=== PATIENT | male | born 1985 | race Two or more races ===

== ENCOUNTER 2020-04-17 13:26 | Emergency (ER) | payer SELFPAY ==
[2020-04-17 13:41] VITALS: BP 160/113; PULSE 88
--- NOTE | 2020-04-17 14:42 | EDM.PDOCBH ---
ED HPI GENERAL MEDICAL PROBLEM - General Chief Complaint: Drug or Alcohol Abuse Stated Complaint: DIZZINESS Time Seen by Provider: 04/17/20 14:39 Source of Information: Reports: Patient History Limitations: Reports: No Limitations - History of Present Illness INITIAL COMMENTS - FREE TEXT/NARRATIVE: 35-year-old male presents to the ED feeling extremely anxious with associated nausea. He states he developed feeling of being off kilter when walking and moving his head which I interpreted as mild vertigo. He also did get to the point that he had given vision and actually went down to his knees as he thought he was going to pass out. When he arrived in the ED apparently felt very unwell with palpitations shortness of breath and anxiety. He states he has chronic anxiety disorder for many years which was successfully treated with Xanax and initially sertraline for many years and then his symptoms recurred reoccurred after he discontinued the sertraline and Xanax and he had to go back on Xanax and he believes Lexapro. And off both of these medications for about a year. He lost his job March 03 due to layoffs from the [employer] virus and has not been able to find work which is creating a lot of financial distress and anxiety. He states when he was working he was distracted most of the time and therefore did not have much in the way of anxiety. He has a marked disrupted sleep pattern at present can fall asleep but often wakes up and cannot get back to sleep. He wakes up every morning very nauseated likely due to postnasal drip and chronic alcohol use. He is using a lot of alcohol's to gain control of anxiety since he was laid off. A pint of whiskey yesterday. Nuys any vomiting or hemoptysis. 2 weeks ago he had a significant bout of abdominal pain and quit drinking for 2 days and it went away. Possible pancreatitis versus alcohol induced gastritis. Denies using street drugs. Does not he feels better since coming into the hospital feels like he has control of his anxiety at present and did not want any Xanax at this time. Onset: Other (Problems have been chronic but much worse since laid off from work 2 months ago.) Duration: Chronic, Getting Worse Location: Reports: Generalized (Where postnasal drip spit have beenChronic but much worse the last 2 months since he has been laid off from work. Generalized anxiety with panic attack.), Other (Chronic alcohol use use the last 2 months) Quality: Reports: Other (Today felt somewhat vertiginous and lightheaded like he could pass out.) Severity: Moderate (To severe reaction today.) Improves with: Reports: Other (Symptoms wax and wane. 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 Denies: Activity ( vertigo.), Exercise, Lifting, Sick Contact, Trauma Associated Symptoms: Reports: Diaphoresis, Loss of Appetite, Malaise, Nausea/ Vomiting ( very anxious. Very nauseated every morning cannot eat for the first 3 to 4 hours of the day.), Shortness of Breath (When he came to the hospital he feeling short of breath and). 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 (see below) (None.) - Related Data Allergies Allergy/AdvReac Type Severity Reaction Status Date / Time silver Allergy Severe Rash Verified 04/17/20 13:41 Home Meds: Home Meds ALPRAZolam [Xanax] 0.5 mg PO Q8H PRN #60 tablet 04/17/20 [Rx] Sertraline [Zoloft] 50 mg PO DAILY #30 tab 04/17/20 [Rx] Past Medical History - Past Health History Medical/Surgical History: Denies Medical/Surgical History Musculoskeletal History: Reports: Fracture Psychiatric History: Reports: Anxiety, Depression - Past Surgical History Musculoskeletal Surgical History: Reports: Shoulder Surgery, Other (See Below) Other Musculoskeletal Surgeries/Procedures:: Plate and screws in right arm Social & Family History - Family History Family Medical History: Noncontributory - Tobacco Use Smoking Status *Q: Former Smoker Used Tobacco, but Quit: Yes Month/Year Tobacco Last Used: 02/2008 - Caffeine Use Caffeine Use: Reports: Coffee, Energy Drinks - Alcohol Use Days Per Week of Alcohol Use: 7 Number of Drinks Per Day: 12 Total Drinks Per Week: 84 Date of Last Drink: 04/17/20 Time of Last Drink: 06:30 - Recreational Drug Use Recreational Drug Use: Yes Drug Use in Last 12 Months: Yes Recreational Drug Type: Reports: Marijuana/Hashish Recreational Drug Use Frequency: Weekly - Living Situation & Occupation Living situation: Reports: Occupation: Employed ED ROS GENERAL - Review of Systems Review Of Systems: See Below Constitutional: Reports: Malaise, Weakness, Fatigue, Decreased Appetite. Denies : Fever, Chills HEENT: Reports: Rhinitis (Aware of chronic postnasal drip.), Sinus Problem, Vertigo Respiratory: Reports: Shortness of Breath (Associated more with anxiety episodes.), Cough (Productive if any.) Cardiovascular: Reports: Chest Pain, Blood Pressure Problem (Pressure was elevated when he came to the ED but he is not known to have a primary hypertension issue.), Lightheadedness, Palpitations. Denies: Dyspnea on Exertion, Edema (He had it today and felt like he was going to pass out for a period of time) Endocrine: Reports: Fatigue GI/Abdominal: Reports: Decreased Appetite, Nausea (Till 11 or 12:00 in the day.) : Reports: Frequency Musculoskeletal: Reports: No Symptoms Skin: Reports: No Symptoms Neurological: Reports: Dizziness (Component of dizziness which is mostly vertigo -like symptoms. Shaded with anxiety and therefore difficult to sort out), Syncope, Weakness. Denies: Difficulty Walking Psychiatric: Reports: Anxiety. Denies: Depression, Hallucinations, Homicidal Ideation, Mood Lability, Suicidal Ideation Hematologic/Lymphatic: Reports: No Symptoms Immunologic: Reports: No Symptoms ED EXAM, BEHAVIORAL HEALTH - Physical Exam Exam: See Below Exam Limited By: No Limitations General Appearance: Alert, WD/WN, Anxious, Mild Distress, Other (Temperature is 36.2. Heart rate is 88. Respiratory was 22 with O2 sats of 100% on room air. Initial BP was elevated 1 6113. It Did come down to as low as 138/88.) Eye Exam: Right Eye: Nystagmus (Very minimal sustained nystagmus on right lateral gaze.), Bilateral Eye: Normal Inspection Ears: Normal TMs Nose: Nasal Swelling (Patient has significant swelling of the nasal turbinates bilaterally worse on the left side with near complete occlusion of the nares.), Nasal Drainage, Clear Rhinorrhea Throat/Mouth: Normal Inspection, Normal Lips, Normal Teeth, Normal Oropharynx, Other Head: Atraumatic, Normocephalic Neck: Normal Inspection, Supple, Non-Tender, Full Range of Motion. No: Lymphadenopathy (L), Lymphadenopathy (R) Respiratory/Chest: No Respiratory Distress, Lungs Clear, Normal Breath Sounds, No Accessory Muscle Use, Chest Non-Tender Cardiovascular: Normal Peripheral Pulses, Regular Rate, Rhythm, No Edema, No Gallop, No Murmur, No Rub GI/Abdominal: Normal Bowel Sounds, Soft, Non-Tender, No Organomegaly, No Distention, No Abnormal Bruit, No Mass, Pelvis Stable. No: Guarding, Rigid Back Exam: Normal Inspection, Full Range of Motion. No: CVA Tenderness (L), CVA Tenderness (R) Extremities: Normal Inspection, Normal Range of Motion, Non-Tender, No Pedal Edema, Normal Capillary Refill Neurological: Alert, Normal Mood/Affect, CN II-XII Intact, Normal Cognition, No Motor/Sensory Deficits, Oriented x 3 Psychiatric: Alert, Normal Affect, Normal Cognition, Normal Mood, Oriented, Restless, Other (Anxious) Skin Exam: Warm, Dry, Intact, Normal color, No rash COURSE, BEHAVIORAL HEALTH COMP - Course Vital Signs: Last Vital Signs Temp 36.2 C 04/17/20 13:36 Pulse 88 04/17/20 13:36 Resp 22 H 04/17/20 13:36 BP 160/113 H 04/17/20 13:36 Pulse Ox 100 04/17/20 13:36 Orders, Labs, Meds: Active Orders 24 hr Category Date Time Status Orthostatic Vital Signs [RC] ASDIRECTED Care 04/17/20 14:39 Active Laboratory Tests 04/17/20 04/17/20 Range/Units 14:50 14:50 WBC 8.59 (4.23-9.07) K/mm3 RBC 5.16 (4.63-6.08) M/mm3 Hgb 16.8 (13.7-17.5) gm/dl Hct 47.5 (40.1-51.0) % MCV 92.1 (79.0-92.2) fl MCH 32.6 H (25.7-32.2) pg MCHC 35.4 (32.2-35.5) g/dl RDW Std Deviation 45.7 H (35.1-43.9) fL Plt Count 307 (163-337) K/mm3 MPV 9.7 (9.4-12.3) fl Neut % (Auto) 76.8 H (34.0-67.9) % Lymph % (Auto) 13.3 L (21.8-53.1) % Ward % (Auto) 8.3 (5.3-12.2) % Eos % (Auto) 1.2 (0.8-7.0) Baso % (Auto) 0.3 (0.1-1.2) % Neut # (Auto) 6.60 H (1.78-5.38) K/mm3 Lymph # (Auto) 1.14 L (1.32-3.57) K/mm3 Ward # (Auto) 0.71 (0.30-0.82) K/mm3 Eos # (Auto) 0.10 (0.04-0.54) K/mm3 Baso # (Auto) 0.03 (0.01-0.08) K/mm3 Sodium 141 (136-145) mEq/L Potassium 4.0 (3.5-5.1) mEq/L Chloride 103 (98-107) mEq/L Carbon Dioxide 26 (21-32) mEq/L Anion Gap 16.0 H (5-15) BUN 11 (7-18) mg/dL Creatinine 0.9 (0.7-1.3) mg/dL Est Cr Clr Drug Dosing 107.11 mL/min Estimated GFR (MDRD) > 60 (>60) mL/min BUN/Creatinine Ratio 12.2 L (14-18) Glucose 102 (74-106) mg/dL Calcium 9.4 (8.5-10.1) mg/dL Magnesium 1.8 (1.8-2.4) mg/dl Total Bilirubin 0.8 (0.2-1.0) mg/dL AST 58 H (15-37) U/L ALT 109 H (16-63) U/L Alkaline Phosphatase 95 (46-116) U/L Total Protein 8.0 (6.4-8.2) g/dl Albumin 4.2 (3.4-5.0) g/dl Globulin 3.8 gm/dL Albumin/Globulin Ratio 1.1 (1-2) Lipase 94 (73-393) U/L Re-Assessment/Re-Exam: 35-year-old male presents to the ED with a combination of symptoms. Patient was laid off from his job a [employer]. This is graded a great deal of anxiety and financial distress. Also he does not have any real hope of finding new work and anytime soon. Patient has a history of generalized anxiety disorder with panic attack. He has been on medications primarily Xanax and Lexapro and sertraline in the past with good relief of symptoms. He was doing so well that he weaned himself off the medications twice and while he is working he is distracted and feels tired and felt he did not need medications. Since being laid off however he is resorted to using alcohol on a daily basis and a fair with large quantity to control anxiety. He wakes up every morning quite anxious and cannot eat for 3 or 4 hours. This is aggravated partially by alcohol induced gastritis but also postnasal drip from his sinus congestion as well. Today he felt very unwell for a period of time there is a component of vertigo where he felt off kilter with walking and loss of balance and then vision got him for a period of time and he went down to his knees to prevent a syncopal event. He has eaten some pizza and some other minimal solids today but not much in the way of fluids. Examination other than marked allergic rhinitis is negative. He is anxious and blood pressure is elevated at this time. Plan will be to have routine labs performed particularly magnesium levels because of his alcohol use etc. I could not demonstrate any significant nystagmus on exam to support vertigo symptoms. I suspect most of his symptoms are that of anxiety. Being aggravated by substance abuse with alcohol. Re-Assessment/Re-Exam Date: 04/17/20 (White count is 8.59 with a slight left shift of 776.8% neutrophils on the auto differential. Hemoglobin is 16.8 with hematocrit of 47.5 suggesting mild hemoconcentration. Platelet count 307,000. MCV is normal at 92.1.) Re-Assessment/Re-Exam Time: 15:45 (Chemistry is back showing a sodium of 141 and a potassium of 4.0. Chloride is 103 with a bicarb of 26. Anion gap is mildly elevated at 16.0. BUN is 11 with a creatinine of 0.9. Glucose 102. Calcium 9.4. Magnesium 1.8. Bilirubin is 0.8 AST is mildly elevated at 58 ALT elevated 109 suspect from alcohol use. Alk phosphatase is 95. Total protein 8.0 with an albumin fraction of 4.2 lipase is 94.) Medical Clearance: 04/17/20 16:08 discussed the findings with the patient that there are no major metabolic abnormalities that would be contributing to his current symptom complex. He is a bit volume depleted. Extra fluids such as Gatorade or Powerade when he gets home. Most of his symptoms are related to anxiety and developing depression due to disrupted sleep pattern. He denies his marked mood lability. I will be to return him to Xanax 0.5 mg 3 times daily as needed. Suggested minimal dose of the first thing in the morning and then at bedtime to help sleep. He can have one in the midday if he needs to for anxious days. We will also start him back on Zoloft 50 mg tablets initially 1/ 2 tablet in the morning for the next week and then increase to a full 50 mg tablet. Follow-up with his personal care physician after that in 3 to 4 weeks time. Departure - Departure Time of Disposition: 16:09 Disposition: Home, Self-Care 01 Condition: Fair Clinical Impression: Generalized anxiety disorder with panic attacks, Disrupted sleep-wake cycle, Allergic rhinitis - Discharge Information *PRESCRIPTION DRUG MONITORING PROGRAM REVIEWED*: Not Applicable *COPY OF PRESCRIPTION DRUG MONITORING REPORT IN PATIENT [place]: Not Applicable Prescriptions: ALPRAZolam [Xanax] 0.5 mg PO Q8H PRN #60 tablet PRN Reason: anxiety relief Sertraline [Zoloft] 50 mg PO DAILY #30 tab Instructions: Alcohol Use Disorder, Panic Attack, [id number], Generalized Anxiety Disorder, Adult Referrals: PCP,None [Primary Care Provider] - Additional Instructions: Evaluation in the emergency room today in regards to feeling very unwell today. A mild sense of vertigo which means a feeling of being off balance or off kilter. However he also developed DM vision and felt like he might pass out for a period of time. Awareness of shortness of breath and palpitations. Tums without of a severe anxiety attack or panic attack. Your lab test did reveal that you are mildly dehydrated and I would suggest at least 20 ounces of Gatorade tonight to provide rehydration. Exam also reveals sinus congestion with postnasal drip which may be contributing to nausea first thing in the morning. Suggest first purchasing the court nasal spray which is now over-the- counter and use 2 squirts to each side of your nose twice daily. You will take for 5 days to start to work but a will open up your nose and reduce the postnasal drip substantially. Likely need this for at least a couple of months. Try and cut back on your alcohol use as it is an inflammatory cold to the stomach which causes gastritis and nausea. Suggest anxiety treatment with Xanax 0.5 mg in the morning and then as needed skilled nursing through the day for a bad day such as 2 or 3:00 and 1 at bedtime if needed to help sleep. Suggest restarting his sertraline or Zoloft 50 mg tablet once daily. Suggest 1/2 tablet for the first 8 days at suppertime and then increase to a full 50 mg tablet after supper or before bed. Suggest follow-up with your personal care physician in about 3 weeks to 4 weeks time to refill medications if needed. Sepsis Event Note (ED) - Evaluation Sepsis Screening Result: No Definite Risk - Focused Exam Vital Signs: Vital Signs Temp Pulse Resp BP Pulse Ox 04/17/20 13:36 36.2 C 88 22 H 160/113 H 100 - My Orders Last 24 Hours: My Active Orders 04/17/20 14:39 Orthostatic Vital Signs [RC] ASDIRECTED - Assessment/Plan Last 24 Hours: My Active Orders 04/17/20 14:39 Orthostatic Vital Signs [RC] ASDIRECTED
== END 2020-04-17 16:25 | disposition home or self-care (01) ==
LOC: JD.ED 13:26
DX: F41.1 Generalized anxiety disorder (principal); F41.0 Panic disorder [episodic paroxysmal anxiety]; J30.9 Allergic rhinitis, unspecified; G47.20 Circadian rhythm sleep disorder, unspecified type; F32.9 Major depressive disorder, single episode, unspecified; Z87.891 Personal history of nicotine dependence; Z91.048 Other nonmedicinal substance allergy status; Z79.899 Other long term (current) drug therapy
CPT/HCPCS: 36415; 80053; 83690; 83735; 85025; 99283; 99284

== ENCOUNTER 2020-05-05 19:49 | Emergency (ER) | payer SELFPAY ==
[2020-05-05] MEDS ORDERED: Amoxicillin/Clavulanate K 875-125 MG Tab PO ONE (19:59)
[2020-05-05 20:00] VITALS: BP 154/102; PULSE 109
[2020-05-05] MEDS ORDERED: Lidocaine 1% 10 ML MDV INJECT ONE (20:11)
--- NOTE | 2020-05-05 20:20 | EDM.PDOC ---
ED HPI GENERAL MEDICAL PROBLEM - General Chief Complaint: Bite:Animal, Insect Stated Complaint: RIGHT HAND LACERATION DOG BITE Time Seen by Provider: 05/05/20 20:05 Source of Information: Reports: Patient History Limitations: Reports: No Limitations - History of Present Illness INITIAL COMMENTS - FREE TEXT/NARRATIVE: Patient is a 35-year-old male who presents to the emergency department with complaints of a dog bite to his right hand. He states he was walking through a neighborhood and the dog was chained up in the yard. The dog was quite large and he believes it was a pit bull. He thought it was a friendly dog and was petting it, however it ended up biting him in the hand. He does not know whose dog it was or if it is up-to-date on its rabies shots. He states he went home and washed his hand with rubbing alcohol and peroxide. His last tetanus vaccination was approximately 4 years ago. A police report has not been filed thus far per the patient's report. Right Hand Pain Score (Numeric/FACES): 3 - Related Data Allergies Allergy/AdvReac Type Severity Reaction Status Date / Time silver Allergy Severe Rash Verified 05/05/20 20:00 Home Meds: Home Meds ALPRAZolam [Xanax] 0.5 mg PO Q8H PRN #60 tablet 04/17/20 [Rx] Sertraline [Zoloft] 50 mg PO DAILY #30 tab 04/17/20 [Rx] Amoxicillin/Potassium Clav [Augmentin 875-125 Tablet] 1 each PO BID 7 Days #13 tablet 05/05/20 [Rx] Past Medical History - Past Health History Medical/Surgical History: Denies Medical/Surgical History Musculoskeletal History: Reports: Fracture Psychiatric History: Reports: Anxiety, Depression - Past Surgical History Musculoskeletal Surgical History: Reports: Shoulder Surgery, Other (See Below) Other Musculoskeletal Surgeries/Procedures:: Plate and screws in right arm Social & Family History - Family History Family Medical History: Noncontributory - Tobacco Use Smoking Status *Q: Never Smoker - Caffeine Use Caffeine Use: Reports: Energy Drinks - Recreational Drug Use Recreational Drug Use: Yes Drug Use in Last 12 Months: Yes Recreational Drug Type: Reports: Marijuana/Hashish Recreational Drug Use Frequency: Rarely - Living Situation & Occupation Living situation: Reports: Occupation: Employed ED ROS GENERAL - Review of Systems Review Of Systems: Comprehensive ROS is negative, except as noted in HPI. ED EXAM, ANIMAL BITE - Physical Exam Exam: See Below Exam Limited By: No Limitations General Appearance: Alert, WD/WN, No Apparent Distress Respiratory/Chest: No Respiratory Distress, Lungs Clear, Normal Breath Sounds, No Accessory Muscle Use, Chest Non-Tender Cardiovascular: Normal Peripheral Pulses, Regular Rate, Rhythm, No Edema, No Gallop, No JVD, No Murmur, No Rub Skin Exam: Other (2 small superficial lacerations and one 1 cm gaping laceration to the dorsal aspect of the hand the web of the thumb and index finger.) ED ANIMAL BITE PROCEDURES - Laceration/Wound Repair Right Dorsal Hand Lac/Wound Length In cm: 1 Appearance: Subcutaneous Distal NVT: Neuro & Vascular Intact Anesthetic Type: Local Local Anesthesia - Lidocaine (Xylocaine): 1% Plain Local Anesthetic Volume: 2cc Skin Prep: Chlorhexidine (Hibiciens), Saline Exploration/Debridement/Repair: Wound Explored, No Foreign Material Found Closed With: Sutures Suture Size: 4-0 # of Sutures: 1 (Loose) Suture Type: Nylon Sterile Dressing Applied: Nurse Tetanus Status Addressed: Yes Complications: No Course - Vital Signs Last Recorded V/S: Last Vital Signs Temp 97.7 F 05/05/20 19:55 Pulse 109 H 05/05/20 19:55 Resp 20 05/05/20 19:55 BP 154/102 H 05/05/20 19:55 Pulse Ox 94 L 05/05/20 19:55 - Orders/Labs/Meds Meds: Medications Discontinued Medications Generic Name Dose Route Start Last Admin Trade Name Milindq PRN Reason Stop Dose Admin Amoxicillin/Clavulanate Potassium 1 tab 05/05/20 19:59 05/05/20 20:03 Augmentin 875 Mg/125 Mg PO 05/05/20 20:00 1 tab ONETIME ONE Administration Lidocaine HCl 10 ml 05/05/20 20:11 05/05/20 20:39 Xylocaine 1% INJECT 05/05/20 20:12 10 ml ONETIME ONE Administration - Re-Assessments/Exams Free Text/Narrative Re-Assessment/Exam: Patient was initially seen by Dr. Morales and he ordered Augmentin to be started. Patient already received that medication when I went in for exam. Patient does have 2 small superficial lacerations and one 1 cm gaping laceration near the dorsal webspace between the thumb and index finger. We did contact [place] [employer] to file a police report and attempt to locate the dog to verify status of rabies vaccinations. I will plan to put a single loose suture in the laceration between the thumb and index finger to better approximate the edges but still allow for wound drainage. Hand has been soaking in saline and chlorhexidine wash. 05/05/20 20:31 [place] [employer] Officer Melanie was here and a police report has been filed. He is going to go and attempt to locate the animal. He will be in contact with the patient. Discussed with the patient that if they are not able to locate the animal or if it is confirmed that he does not have his rabies vaccinations, he may follow-up with his primary care provider Nanette Funes in the clinic within 72 hours to discuss rabies prophylaxis. He is in agreement with this plan. We will send a prescription for 7 days of Augmentin to [facility]. Discharge instructions as documented. Departure - Departure Time of Disposition: 20:33 Disposition: Home, Self-Care 01 Condition: Good Clinical Impression: Dog bite of hand Qualifiers: Encounter type: initial encounter Laterality: right Qualified Code(s): S61.451A - Open bite of right hand, initial encounter - Discharge Information *PRESCRIPTION DRUG MONITORING PROGRAM REVIEWED*: No *COPY OF PRESCRIPTION DRUG MONITORING REPORT IN PATIENT [place]: No Prescriptions: Amoxicillin/Potassium Clav [Augmentin 875-125 Tablet] 1 each PO BID 7 Days #13 tablet Instructions: Animal Bite, Adult, [id number], Sutured Wound Care, [id number] Referrals: Linnea Scruggs PA-C [Primary Care Provider] - Forms: ED Department Discharge Additional Instructions: You were seen in the emergency department today for dog bite to your right hand. After cleaning the wound, 1 suture was placed to keep the laceration loosely closed but still allow for drainage. This suture should stay intact for 7 days. After that time they may be removed in the clinic by a nurse. Keep the wound clean and dry. Wash with normal soap and water twice daily. Do not submerge the wound in water. Watch for signs of infection including increased redness, swelling, or purulent drainage. If these should occur, you should be seen either in the clinic or in the emergency department as antibiotic treatment may be needed. You have been started on Augmentin which is an antibiotic to prevent infection to the hand. You received your first dose in the ER tonight. The remaining doses have been sent electronically to [facility]. Pick this medication up tomorrow morning and take the entire prescription prescribed until it is gone. Keep in contact with the [place] [employer] to determine if they were able to locate the dog and if it is up-to-date on its vaccinations. If they are unable to locate the dog or if he has not received his rabies vaccination, martha pryor follow-up in the clinic with your primary care provider within 72 hours to discuss rabies prophylaxis. Return to the ER as needed. Sepsis Event Note (ED) - Evaluation Sepsis Screening Result: No Definite Risk - Focused Exam Vital Signs: Vital Signs Temp Pulse Resp BP Pulse Ox 05/05/20 19:55 97.7 F 109 H 20 154/102 H 94 L
== END 2020-05-05 20:51 | disposition home or self-care (01) ==
LOC: JD.ED 19:49
DX: S61.451A Open bite of right hand, initial encounter (principal); S61.411A Laceration without foreign body of right hand, initial encounter; F41.9 Anxiety disorder, unspecified; F32.9 Major depressive disorder, single episode, unspecified; Z91.048 Other nonmedicinal substance allergy status; Z79.899 Other long term (current) drug therapy; W54.0XXA Bitten by dog, initial encounter
CPT/HCPCS: 12001; 99283; A9270; J2001